=== PATIENT | female | born 1995 | race Caucasian/White ===

== ENCOUNTER 2017-06-04 11:59 | Day surgery (SDC) | payer BC ==
[2017-06-02 11:39] VITALS: BMI 21.1
--- NOTE | 2017-06-04 03:57 | HP ---
HISTORY AND PHYSICAL CHIEF COMPLAINT: Recurrent tonsillitis. HISTORY OF PRESENT ILLNESS: This patient is a very pleasant 21-year-old female who is alert and cooperative and presents to my office complaining of having multiple episodes of acute tonsillitis despite treatment with various types of oral antibiotics. At the time that the patient was seen in my office, clinical examination of the oropharynx revealed 3+ cryptic tonsils filled with white cheesy debris. It was recommended that the patient undergo a tonsillectomy under general anesthesia. PAST MEDICAL HISTORY: Past medical history reveals that the patient has an allergy to CLINDAMYCIN. Her only current medications include control pills. She has no history of asthma, diabetes mellitus or hypertension. REVIEW OF SYSTEMS: The review of systems is essentially unremarkable. She has not had any previous surgeries. PHYSICAL EXAMINATION: This patient is a pleasant 21-year-old female who is alert and cooperative. HEENT EXAMINATION: Patient is normocephalic. Tympanic membranes are normal. Middle ear spaces are free of any fluid or infection. Pupils are equal, round, reactive to light and accommodation. Extraocular movements are within normal limits. Intranasal examination reveals moderate septal deviation with compensatory hypertrophy of the inferior turbinates and a moderate amount of mucus on the mucous membranes and draining down the posterior pharynx. Examination of the oropharynx reveals 3+ cryptic tonsils filled with white cheesy debris. Palpation of the neck, cranial nerves 2 through 12 and the remainder of the head and neck exam are within normal limits CHEST/CARDIOVASCULAR: Both lung basurto are clear to percussion and auscultation. The patient is in regular sinus rhythm. S1 and S2 are present without evidence of any murmurs. ABDOMEN: There is no evidence of any masses, megaly or tenderness. The abdomen is soft. Skin is unremarkable. Musculoskeletal and neurological are within normal limits. PELVIC/RECTAL EXAM: This is deferred at this time because the patient has this done at her family physician's office. The remainder of the physical exam is essentially unremarkable. IMPRESSION: Chronic tonsillitis. PLAN: The patient is scheduled to undergo a tonsillectomy under general anesthesia. Attention RNs in the pre-surgical area, I have ordered for this patient to receive 1000 mg of Ofirmev IV and also 1 million units of penicillin G IV only. These medications are to be given once an intravenous line has been established. I have not ordered any other pre-surgical prophylactic antibiotic or antibiotic combination. If the pharmacy department sends any other pre-surgical prophylactic antibiotic or antibiotic combination to the pre-surgical area for this patient, that order should be cancelled and the medication should be returned to the pharmacy department and make sure that the patient's account is credited appropriately. I have discussed the risks, benefits and alternative therapies for the above-mentioned procedure and for both sedation/analgesia as well as necessary blood product administration, if indicated, as they pertain to this patient. The patient has indicated his or her understanding and acceptance of the risks and procedures discussed. MMODL / IJN: [id number] /
[~2017-06-04 11:59] MED LIST: DEXAMETHASONE SOD PHOSPHATE 10 MG/ML 1 ML VIAL IV ONE; LACTATED RINGERS 1,000 ML IV SCH; LIDOCAINE 1% 20 ML VIAL (10MG/ML) FOR IV START INTRADERMA PRN; MIDAZOLAM 2 MG/2 ML VIAL IV PRN; NALOXONE 0.4 MG/ML 1 ML VIAL IV PRN; Pre Op ABX Message 1 EACH MISC MISCELLANE ONE; SCOPOLAMINE 1.5MG/72HR PATCH TRANSDERM ONE
[2017-06-04] MEDS ORDERED: ACETAMINOPHEN IV (For NPO) 1,000 MG in EMPTY BAG 1 BAG IVPB ONE (12:50)
[2017-06-04] MEDS: ONDANSETRON 4 MG/2 ML VIAL IVP ONE ×2 (13:06→16:09)
[2017-06-04] MEDS: PENICILLIN G POTASSIUM 1,000,000 UNIT in DEXTROSE 5% IN WATER 100 ML IVPB ONE ×4 (13:07→13:10)
[2017-06-04] MEDS ORDERED: HYDROmorphone PCA 5 MG/25 ML SYRINGE IV PRN (13:45)
[2017-06-04] MEDS ORDERED: MIDAZOLAM 2 MG/2 ML VIAL ONE (13:59)
[2017-06-04] MEDS ORDERED: DEXAMETHASONE SOD PHOS (MDV) 100 MG/10 ML VIAL ONE (13:59)
[2017-06-04] MEDS ORDERED: SUCCINYLCHOLINE CHLORIDE 100 MG/5 ML SYR IV ONE (13:59)
[2017-06-04] MEDS ORDERED: fentaNYL (PF) 50 MCG/ML 2 ML AMP ONE (13:59)
[2017-06-04] MEDS ORDERED: LIDOCAINE 1% INJ 10MG/ML (20 ML MDV) ONE (13:59)
[2017-06-04] MEDS ORDERED: PROPOFOL 10 MG/ML 20 ML VIAL IV ONE (13:59)
[2017-06-04] MEDS ORDERED: BUPIVACAINE (PF) 0.5% 30 ML VIAL SQ ONE ×2 (14:20)
[2017-06-04] MEDS ORDERED: LACTATED RINGERS 1,000 ML IV ONE (14:40)
[2017-06-04 15:08] VITALS: TEMP 98.1
[2017-06-04 15:14] VITALS: RESP 16
[2017-06-04] MEDS: HYDROmorphone 0.5 MG/0.5 ML SYRINGE IVP PRN ×2 (15:25→15:52)
[2017-06-04 17:44] VITALS: BP 136/75; PULSE 103
--- NOTE | 2017-06-04 21:01 | OP ---
OPERATIVE REPORT PREOPERATIVE DIAGNOSIS:: Chronic tonsillitis. POSTOPERATIVE DIAGNOSIS:: Chronic tonsillitis. OPERATION:: Tonsillectomy. ESTIMATED BLOOD LOSS:: Less than 50 mL. SPECIMEN TAKEN:: OPERATING SURGEON: Dr. Etienne. COMPLICATIONS: None. ANESTHESIA: General. OPERATIVE PROCEDURE: The patient was placed on the Operating Table in the supine position, after uneventful induction and endotracheal intubation, satisfactory general anesthesia was obtained. Next, the #3 George-Tristian mouth gag was introduced into the oropharynx, expanded and suspended from a Chilel Stand. Following this, both peritonsillar areas were injected with the tonsillar forceps and pulled medially. The sickle knife was used to make an incision 4 mm lateral to the anterior pillar, beginning at the superior pole and working down to the inferior pole with a similar incision being carried out parallel to the posterior pillar. The angle scissors and the serrated Nisahnt dissector were used to dissect the tonsil away from the tonsillar fossa. The tonsil itself was excised en toto using the tonsillar snare. Hemostasis was obtained using suction cautery. A sponge was placed in the empty tonsillar fossa. Attention was then directed to the left tonsil where the same procedure was carried out, with the left tonsil being grasped with the tonsillar forceps and pulled medially. The sickle knife was used to make an incision 4 mm lateral to the anterior pillar beginning at the superior pole and working down to the inferior pole with a similar incision being carried out parallel to the posterior pillar. Once again, the angle scissors and the serrated Nishant dissector were used to dissect the tonsil away from the tonsillar fossa and the tonsil itself was excised en toto using the tonsillar snare. Hemostasis was obtained using suction cautery. A sponge was placed in the empty tonsillar fossa. The mouth gag was relaxed for a period of approximately seven minutes and upon re-expanding and removing all sponges, no evidence of any active bleeding was noted. At this point, the procedure was terminated. There were no intraoperative complications. The patient tolerated the procedure well and was returned to the Recovery Room in satisfactory condition. MMODL / IJN: [id number] /
== END 2017-06-04 18:19 | disposition home or self-care (01) ==
LOC: OR 11:59
PROVIDERS: ATTEND Otolaryngology
DX: J35.01 Chronic tonsillitis (principal); Z88.1 Allergy status to other antibiotic agents; Z79.3 Long term (current) use of hormonal contraceptives
CPT/HCPCS: 81025; 88304; 42826; J2250; J1100 ×2; J2405; J2001; J3010; J0131; J0330; J2704; J1170; J2540